=== PATIENT | female | born 1995 | race Hispanic/Latino ===

== ENCOUNTER → 2020-01-15 14:44 | Outpatient (CLI) | payer OTHER, SELFPAY ==
[2020-01-17 20:08] LABS: AFP, Serum 29.6 ng/mL (.); Estriol, Free 1.68 ng/mL (.); Inhibin A, Dimeric 79.34 pg/mL (.); Inhibin A, MoM 0.51 (.); Maternal Ethnicity Other (.); Maternal Weight 169 lbs (.); Number of Fetuses No (.); OSBR Risk 1 IN 10000 (.); Results Report (.); Test Results *Screen Negative* (.); hCG, MoM 0.79 (.); hCG, Serum 19872 mIU/mL (.)
== END ==
PROVIDERS: PCP Obstetrics & Gynecology; Referring Provider Obstetrics & Gynecology; Visit Provider Obstetrics & Gynecology
DX: Z34.82 Encounter for supervision of other normal pregnancy, second trimester (principal); Z3A.18 18 weeks gestation of pregnancy
CPT/HCPCS: 36415; 82105; 82677; 84702; 86336

== ENCOUNTER → 2020-01-28 09:04 | Outpatient (CLI) | payer OTHER, SELFPAY ==
--- NOTE | 2020-01-28 09:04 | DI.US.S_ITS ---
PROCEDURE: US OB >= 14 WEEKS FETUS INDICATIONS: ANATOMY SCAN OUTSIDE/PRIOR DATING DATA: Last menstrual period (LMP): 09/09/2019. LMP-based estimated date of delivery (CELE): 06/15/2020 . First dating scan (date and location): 11/19/2019 . Estimated date of delivery (CELE) from first dating scan: 06/15/2020 . TECHNIQUE: Real-time scanning was performed of the fetus, with image documentation and biometric measurements. Endovaginal scanning: No COMPARISON: [facility], , OB >= 14 WEEKS FETUS, 01/15/2020, 14:40. FINDINGS: General: A single living intrauterine gestation is present. Presentation: Vertex. Placenta: Placental position is posterior , without previa. Amniotic fluid index: 18.1 cm, normal range is 5-24 cm. heart rate: 160 beats per minute. Maternal cervical canal: 4.6 cm long. Normal lower limit is 2.5 cm. biometrics: Biparietal diameter: 20 weeks 6 days Head circumference: 20 weeks 5 days Abdominal circumference: 20 weeks 6 days Femur length: 20 weeks 3 days Estimated gestational age from initial scan: 20 weeks 1 day Composite gestational age from present scan: 20 weeks 5 days Estimated weight and percentile: 370 g; 76 percentile Measurement variability for biometric dating: +/- 7 days from 14 weeks to 15 weeks 6 days gestation, +/- 10 days from 16 weeks to 21 weeks 6 days gestation, +/- 2 weeks from 22 weeks to 27 weeks 6 days gestation, +/- 3 weeks for 28 weeks gestation or later. weight reference: 4500 g or EFW >90/95% is considered macrosomia or large for gestational age. EFW <10% is small for gestational age. EFW 5% or less is considered intra-uterine growth restriction. Anatomic survey: Neuro: Ventricles are non-dilated at less than 10 mm. Cisterna magna is normal at 3-11 mm. Cerebellum is normal in size and morphology. Nuchal skin fold: Normal at less than 6 mm between 14-21 weeks gestational age. Face: Nose and lips, facial profile are normal. Spine: No evidence for spina bifida. Heart: 4-chambered heart is present, with normal ventricular outflow tracts. Diaphragm: Diaphragm is intact. Stomach: Left-sided stomach is present. Kidneys: No hydronephrosis. Normal is less than 5 mm in 2nd trimester, less than 7 mm in 3rd trimester. Cord: 3-vessel cord has orthotopic insertion. Bladder: Normal in size. Extremities: All 4 extremities identified. IMPRESSION: 1. Single living IUP redemonstrated and interval growth is normal. 2. Normal anatomic survey. Dictated by: Izaiah [employer] [facility] Interpreted: Ortiz Holt MD on 01/28/2020 at 10:34 Approved by: Ortiz Holt M.D. on 01/28/2020 at 11:39
== END ==
PROVIDERS: Referring Provider Obstetrics & Gynecology; Visit Provider Obstetrics & Gynecology
DX: Z34.82 Encounter for supervision of other normal pregnancy, second trimester (principal); Z3A.20 20 weeks gestation of pregnancy
CPT/HCPCS: 76811

== ENCOUNTER → 2020-03-20 10:18 | Outpatient (CLI) | payer OTHER, SELFPAY ==
[2020-03-20 13:37] LABS: Hematocrit 36.1 % (36-46); Hemoglobin 12.4 g/dL (12.0-16.0)
[2020-03-20 13:42] LABS: GTT (PREG) 1 Hour PP 50gm Dose 120 mg/dL (76-139)
== END ==
PROVIDERS: Referring Provider Obstetrics & Gynecology; Visit Provider Obstetrics & Gynecology
DX: Z34.82 Encounter for supervision of other normal pregnancy, second trimester (principal); Z3A.27 27 weeks gestation of pregnancy
CPT/HCPCS: 82950; 85014; 85018

== ENCOUNTER → 2020-05-20 15:36 | Outpatient (CLI) | payer OTHER, SELFPAY ==
[2020-05-21 12:36] LABS: Strep Grp B PCR NEG for Grp B Strep
== END ==
PROVIDERS: Visit Provider Obstetrics & Gynecology
DX: Z34.83 Encounter for supervision of other normal pregnancy, third trimester (principal); Z3A.36 36 weeks gestation of pregnancy
CPT/HCPCS: 87653

== ENCOUNTER 2020-06-11 17:46 | Outpatient (CLI) | payer OTHER, SELFPAY | END 2020-06-11 18:20 | disposition home or self-care (01) | LOC: OB 06-16 14:48 | PROVIDERS: Referring Provider Obstetrics & Gynecology; Visit Provider Obstetrics & Gynecology | DX: Z34.83 Encounter for supervision of other normal pregnancy, third trimester (principal); Z3A.39 39 weeks gestation of pregnancy | CPT/HCPCS: 59025; G0378; G0379 ==

== ENCOUNTER 2020-06-13 07:39 | Inpatient (IN) | payer OTHER, SELFPAY ==
--- NOTE | 2020-06-13 09:38 | P.HPOB_ITS ---
OB HPI Date/Time Date of admission: 06/13/20 Date Patient Seen: 06/13/20 Time Patient Seen: 09:39 History of Present Condition Chief complaint: OBSERVATION : 2 Para: 1 Estimated Date of Delivery: 06/15/20 Estimated Gestational Age (weeks): 39 Narrative: Jackie Fox is a 24 year old 001 at 39 weeks 5 days presenting after spontaneous rupture of membranes at home, and likely early labor. The patient reports copious clear fluid at 5:30 a.m., continuing ongoing leakage with a pink tinge, and contractions every 6 minutes. She reports good movement, but denies fevers or chills, and has no other symptoms or concerns. Her has been otherwise uncomplicated, and she has a history of uncomplicated term vaginal delivery of an infant just over 8 lb. She has no other contributory medical, surgical, family, or social history. History of Present care: good care, initiated at week # (10 weeks), number of visits (12) and pounds weight gain (32) Dating criteria: LMP confirmed by 1st trimester US Ultrasounds: normal mid trimester US Obstetrical complications: none Medical complications: none Preadmission Labs Blood type: A (+) positive -: Antibody screen: negative, GBS status: negative, HBsAG: negative, HIV: negative and RPR/VDLR: negative -: Rubella: immune and Varicella: immune PAP: Normal Quad screen: Normal 1 hr GTT: 120 Prior (ies) History: G1: 05/30/17, 40 wks, , 8#2, M, 12 hr labor, Shaun, born in [facility] Evaluation Evaluation Baseline heart rate: 130 Variability: Average (6-10) monitor accelerations: Present Monitor Decelerations: Absent Contraction Frequency (minutes): 4 Category of Tracing: Reactive Status: Category l Cervical dilation (cm): 3 Cervical effacement (%): 80 station: -2 Non-invasive Membranes Rupture Test: positive PFSH Medical History Acute left-sided low back pain with left-sided sciatica Anxiety (~2018) Hx of retained foreign body fully removed (~04/2019) Pelvic somatic dysfunction Sacral region somatic dysfunction (spontaneous vaginal delivery) (~2017) Surgical History Anesthesia H/O arthroscopy of left knee (~07/2014) H/O wisdom tooth extraction (~05/2013) Family History Mother Pre-diabetes Father Hyperlipidemia Grandmother Diabetes mellitus Depression Grandfather No problems noted. 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.) occupational status: unemployed current occupational exposures/hazards: No special dante needs: No Smoking Status: Never smoker second hand exposure: No alcohol intake: former (pre- : moderate use) substance use type: does not use Meds Home Medications and Allergies Home Medications Medication Instructions Recorded Confirmed Type prenat.vits,thomas,plc-[id number] 1 tab PO DAILY 12/17/19 05/20/20 History Allergies Allergy/AdvReac Type Severity Reaction Status Date / Time No Known Drug Allergies Allergy Verified 05/20/20 13:23 Review of Systems Constitutional Constitutional: Reports system reviewed and no additional complaints, except as documented Cardiovascular Cardiovascular: Reports system reviewed and no additional complaints, except as documented Respiratory Respiratory: Reports system reviewed and no additional complaints, except as documented Gastrointestinal Gastrointestinal: Reports system reviewed and no additional complaints, except as documented Genitourinary Genitourinary: Reports as per HPI Neurologic Neurologic: Reports system reviewed and no additional complaints, except as documented Exam Vital Signs (past 8 hours): 108/69, 78 Const General: cooperative, healthy appearing and comfortable Resp Effort & Inspection: normal respiratory effort Auscultation: clear to auscultation bilaterally Cardio Rate: regular rate Rhythm: regular rhythm GI Palpation: soft and No tender External Female Exam: normal external appearance (Ongoing leakage of clear fluid) Objective Labs Result Diagrams: 06/13/20 10:15 Assessment and Plan Assessment and Plan Assessment and Plan narrative: This patient is admitted with spontaneous rupture of membranes at term, has made cervical change since her exam 36 hours ago. Anticipate vaginal delivery. Patient appears to be in early labor, discussed ambulation, discussed Pitocin later today if not making cervical change. Admit per routine protocol. Epidural when requested.
[2020-06-13 10:39] LABS: Add Manual Diff / Slide Review NO; Basophils Absolute Auto 0 /uL (0-100); Basophils Percent Auto 0.6 % (0-2); Eosinophils Absolute Auto 0 /uL (0-450); Eosinophils Percent Auto 0.3 % (2-4); Hematocrit 33.2 % (36-46); Hemoglobin 11.3 g/dL (12.0-16.0); Lymphocytes Absolute Auto 1400 /uL (1100-4500); Lymphocytes Percent Auto 17.3 % (25-40); Mean Corpuscular Volume 85.4 fL (80-100); Monocytes Absolute Auto 400 /uL (0-900); Monocytes Percent Auto 4.9 % (3-14); Neutrophils Absolute Auto 6300 /uL (1500-7000); Neutrophils Percent Auto 76.9 % (50-75); Platelet Count 218 X10^3/uL (150-400); Red Blood Cell Count 3.89 X10^6/uL (4.0-5.2); Red Cell Distribution Width 12.6 % (11.6-14.8); White Blood Cell Count 8.2 X10^3/uL (4.5-11.0)
[2020-06-13 10:58] LABS: COVID19 - ADMIT (NP swab/PCR) Negative (Negative)
--- NOTE | 2020-06-13 12:25 | PM.OBPNLAB ---
Date/Time Date Patient Seen: 06/13/20 Time Patient Seen: 12:26 Pelvic Exam Dilation (cm): 3 Effacement (%): 80 station: -1 Contractions Contraction frequency (min): 3 Status status: Category l Heart Rate Baseline: 130 Monitor Accelerations: Present Monitor Decelerations: Absent Monitor Variability: Moderate Assessment and Plan Assessment: active labor Plan: begin patient augmentation Comments: No cervical change since last exam, patient to ambulate and for pitocin augmentation
[2020-06-13] MEDS: LACTATED RINGERS 1,000 ML 100 ML IV ×2 (12:42→15:00)
[2020-06-13] MEDS: OXYTOCIN PREMIX 30 UNIT/500 ML PLAST..BAG IV (12:46)
--- NOTE | 2020-06-13 16:02 | PM.OBPNLAB ---
Date/Time Date Patient Seen: 06/13/20 Time Patient Seen: 16:04 Pain Control Pain control: epidural Pelvic Exam Dilation (cm): 4 Effacement (%): 80 station: -1 Amniotic membrane status: Ruptured Comments: forebag ruptured for copious clear fluid Contractions Pitocin rate (mU/min): 2 Contraction frequency (min): 2 Contraction duration (min): 1 Contraction pattern: Regular Status status: Category l Heart Rate Baseline: 135 Monitor Accelerations: Present Monitor Decelerations: Early Monitor Variability: Moderate Assessment and Plan Plan: continuous present management
[2020-06-13] MEDS: METHYLERGONOVINE 0.2 MG/ML VIAL IM (17:35)
--- NOTE | 2020-06-13 18:00 | PM.OBPRVD ---
Events: Labor Augmentation Labor & Delivery Delivery date: 06/13/20 Intrapartal Events: Acceleration and Deceleration Delivery augmentation: pitocin Delivery monitor: external FHT and external uterine Route of delivery: L&D Laceration Description: Periurethral - 2nd Degree Anesthesia Type: Epidural Narrative: This patient presents after SROM at home for clear fluid, positive amnisure and then grossly ruptured. After 7 hours without cervical change, she was augmented with pitocin, and after rupture of a forebag, she progressed rapidly. After a 15 minute second stage, she was delivered of a healthy baby boy. There was no nuchal cord, and the shoulders delivered with ease. Apgars were 9+9, and weight was 8#1. The cord was clamped and cut after 45 seconds of delayed cord clamping, with the on the maternal abdomen. The placenta delivered spontaneously and intact shortly thereafter. The patient had lower uterine segment atony with brisk bleeding despite the usual pitocin and massage, and received 1 dose of 0.2mg IM methergine to good effect. Overall EBL was 300mls. A 2nd degree periurethral/left labial laceration was repaired with interrupted sutures of 3-0 vicryl to approximate the tissue for healing. There were no other intrapartum or immediate complications. [place] Baby Nathaniel: gender: Male Presentation: vertex Position: Left Occiput Anterior Placenta delivery description: Spontaneous Cord Vessel Description: 3 Vessels score (1 min): 9 score (5 min): 9 weight: 8 lb 1 oz Plan for aftercare: Routine care
[2020-06-13] MEDS: IBUPROFEN 600 MG TABLET PO (20:30)
[2020-06-13] MEDS: DERMOPLAST SPRAY 20% 60 ML 1 SPRAY TOP (21:15)
[2020-06-13] MEDS: ACETAMINOPHEN 325 MG TABLET 650 MG PO (21:30)
[2020-06-14] MEDS: IBUPROFEN 600 MG TABLET PO (06:05)
[2020-06-14] MEDS: ACETAMINOPHEN 325 MG TABLET 650 MG PO (06:05)
--- NOTE | 2020-06-14 10:00 | P.DS_ITS ---
Discharge Providers Provider Date of admission: 06/13/20 07:39 Discharge Date: 06/14/20 Primary care physician: Doctor Maty MD Consults: 06/14/20 17:59 Consult to Cable Inspector Routine Comment: Discharge provider: Farrah Warren MD Summary Hospital Course Date Patient Seen: 06/14/20 Time Patient Seen: 10:00 Diagnoses: term spontaneous vaginal delivery Hospital Course: This patient was admitted after PROM at home for clear fluid, at 39+5 after an uncomplicated . She made no cervical change and was augmented with pitocin. She progressed to fully dilated, and after a short 2nd stage, delivered a healthy baby boy without complication. Her course was uneventful, and she was discharged home on PPD#1. Peripartum Data Delivery Method: Natural Vaginal Laceration Description: Periurethral - 2nd Degree Procedures: complications: none [place] 1: Gender: Male Disposition of : home Status at Discharge Cognitive/behavioral status at discharge: oriented Functional status at discharge: independent ambulation Overall status at discharge: patient is progressing back to baseline Time Spent with Patient Time attestation: Total time spent providing and/or coordinating discharge services: Objective Labs Result Diagrams: 06/13/20 10:15 Labs: Laboratory Results - last 24 hr 06/13/20 06/13/20 06/13/20 08:30 10:15 10:15 WBC 8.2 RBC 3.89 L Hgb 11.3 L Hct 33.2 L MCV 85.4 MCH 29.0 MCHC 34.0 RDW 12.6 Plt Count 218 Neut % (Auto) 76.9 H Lymph % (Auto) 17.3 L Orange % (Auto) 4.9 Eos % (Auto) 0.3 L Baso % (Auto) 0.6 Neut # (Auto) 6300 Lymph # (Auto) 1400 Orange # (Auto) 400 Eos # (Auto) 0 Baso # (Auto) 0 SARS-CoV-2 (PCR) Negative SARS-CoV-2 IgA Ab Cancelled Blood Type Antibody Screen 06/13/20 10:15 WBC RBC Hgb Hct MCV MCH MCHC RDW Plt Count Neut % (Auto) Lymph % (Auto) Orange % (Auto) Eos % (Auto) Baso % (Auto) Neut # (Auto) Lymph # (Auto) Orange # (Auto) Eos # (Auto) Baso # (Auto) SARS-CoV-2 (PCR) SARS-CoV-2 IgA Ab Blood Type O Positive Antibody Screen Negative Exam Vital Signs (past 8 hours): 126/78, HR 76 Const General: cooperative, healthy appearing and comfortable Resp Effort & Inspection: normal respiratory effort Auscultation: clear to auscultation bilaterally Cardio Rate: regular rate Rhythm: regular rhythm GI Palpation: soft and No tender Other: fundus firm, at u Extrem General: normal to inspection Discharge Plan Discharge Plan Patient Disposition: Home Discharge orders & Medications Prescriptions: Continued prenat.vits,thomas,sdh-xofj-[id number] Tablet 1 tab PO DAILY RF: 0 Follow up/Referrals: Farrah Warren MD [Physician] - 6 Weeks () Doctor Rutledge MD [Primary Care Provider] - Diet/Activity/Treatments Diet: Regular Activity: Nothing in the vagina for 6 weeks. Avoid lifting more than 10 pounds for 6 weeks. If you have increasing bleeding, pain, fevers, chills, nausea, vomiting, headaches, visual changes, or any other symptoms, call or come to the emergency room. Skin/Wound/Dressing Care Report to your healthcare provider any signs of infection, such as:: chills, fever, night sweats, increased pain, unusual drainage and unusual redness Visit Report/Discharge Packet Instructions: DI for Labor and Delivery, Vaginal Discharge Data Primary Care Provider: Doctor Maty Attending Provider: Farrah Warren
[2020-06-14 13:28] VITALS: BP 121/70; PULSE 80; RESP 18; TEMP 36.3
== END 2020-06-14 16:45 | disposition home or self-care (01) | DRG 807 ==
PROVIDERS: Admitting Provider Obstetrics & Gynecology; Referring Provider Obstetrics & Gynecology; Visit Provider Obstetrics & Gynecology
DX: O42.02 Full-term premature rupture of membranes, onset of labor within 24 hours of rupture (principal); Z37.0 Single live birth; O70.1 Second degree perineal laceration during delivery; Z3A.39 39 weeks gestation of pregnancy; Z20.822 Contact with and (suspected) exposure to COVID-19
CPT/HCPCS: 01967; 36415; 59025; 59050; 59400; 84112; 85025; 86850; 86900; 86901; 87635; C9803; G0378; G0379; J2210; J2590